=== PATIENT | male | born 1995 | race Caucasian/White ===

== ENCOUNTER 2018-10-24 08:37 | Emergency (ER) | payer OTHER ==
[2018-10-24 08:45] VITALS: BP 135/63
[2018-10-24] MEDS ORDERED: LIDOCAINE 1% 2 ML VIAL SUBQ ONE (09:03)
[2018-10-24] MEDS ORDERED: AZITHROMYCIN 250 MG TABLET PO STA (09:03)
[2018-10-24] MEDS ORDERED: cefTRIAXone 250 MG VIAL IM STA (09:03)
--- NOTE | 2018-10-24 09:07 | ED Physician Documentation ---
History of Present Illness - Stated complaint Stated Complaint: MALE - Chief complaint Chief Complaint: UTI - History obtained from History obtained from: Patient - History of Present Illness Pain level max: 5 - Additonal information Additional information: Patient is a previously healthy 23-year-old male presenting with concern for STD after reported exposure to gonorrhea. Patient reports less than 1 day of painful urination, sensation of inability to void, and penile drainage. Patient denies other rash or lesions to groin, as well as erythema, swelling, or other changes to penis or testicles.Patient denies other complaints including vomiting, stool changes, abdominal pain or other concerns. No particular improving or worsening symptoms or interventions noted. Review of Systems GI: denies: Abdominal Pain : reports: Dysuria, Frequency, Unable to Void. denies: Testicular pain Skin: denies: Rash, Lesions PD PAST MEDICAL HISTORY - Past Medical History Past Medical History: No - Past Surgical History Past Surgical History: No - Present Medications Home Medications: Ambulatory Orders Medication Instructions Recorded Confirmed No Known Home Medications 10/24/18 10/24/18 - Allergies Allergies/Adverse Reactions: Allergies Allergy/AdvReac Type Severity Reaction Status Date / Time No Known Drug Allergies Allergy Verified 10/24/18 08:45 PD ED PE NORMAL - General General: Alert and oriented X 3, No acute distress, Well developed/nourished - Respiratory Respiratory: No respiratory distress - Abdomen Abdomen: Normal bowel sounds, Soft, Non tender, Non distended - Male Male : Toilet Attendant present, Other (No inguinal hernia present bilaterally. Pain purulent drainage present at the meatus, but no other penile changes including no erythema, swelling, tenderness, rash or lesion. Testicular exam benign.) - Derm Derm: Normal color, Warm and dry, No rash - Extremities Extremities: No deformity - Neuro Neuro: Alert and oriented X 3, No motor deficit, Normal speech - Psych Psych: Normal mood, Normal affect Results - Vitals Vitals: Vital Signs - 24 hr 10/24/18 08:42 Temperature 36.4 C L Heart Rate 55 L Respiratory 16 Rate Blood Pressure 135/63 H O2 Saturation 99 Oxygen O2 Source Room air PD MEDICAL DECISION MAKING - ED course Complexity details: considered differential, d/w patient ED course: Most concerning for exposure to STDGiven patient's reported exposure to gonorrhea, as well as symptoms. Vital signs within normal limits. Physical exam rather benign except for mild penile drainage. Do not find evidence of inguinal hernia, testicular pathology including torsion or epididymitis, other groin lesions or rash. Patient also has benign abdominal exam and do not have high concerns for intra-abdominal pathology at this time. Discussed safe sex practices, as well as treatment for STD in ED today. Recommended follow-up with primary care physician and provided return precautions. Patient voiced understanding and is comfortable with discharge plan. Departure - Departure Disposition: 01 Home, Self Care Clinical Impression: STD exposure Condition: Good Instructions: STDs Follow-Up: [email or web address] [Other] Comments: Please contact all sexual partners to notify of potential exposure. Did not partake in sexual activity until all partners are appropriately treated. Please follow-up with your primary care physician in next 2-3 days and return to ED sooner if experience worsening symptoms or other concerns. Discharge Date/Time: 10/24/18 09:31
== END 2018-10-24 09:31 | disposition home or self-care (01) ==
LOC: ED 08:37
DX: Z20.2 Contact with and (suspected) exposure to infections with a predominantly sexual mode of transmission (principal)
CPT/HCPCS: 87491; 87591; 96372; 99282; 99283; A9270